=== PATIENT | male | born 1940 | race Caucasian/White ===

== ENCOUNTER 2021-02-03 20:13 | Emergency (ER) | payer OTHER ==
[~2021-02-03] VITALS: Ht 172.7 cm; Wt 77.1 kg
[2021-02-03 20:20] VITALS: BP 174/92
--- NOTE | 2021-02-03 20:20 | NUR ---
to bed via w/c with
[2021-02-03] MEDS ORDERED: LIDOCAINE MPF 1% 10 MG/ML VIAL INJ ONE (20:40)
[2021-02-03] MEDS ORDERED: BACITRACIN OINT 500 UNITS/GM PKT TP ONE (20:40)
--- NOTE | 2021-02-03 20:53 | NUR ---
Dr. Garcia examining patient.
[2021-02-03 22:04] VITALS: BP 174/92
--- NOTE | 2021-02-03 22:04 | NUR ---
Patient discharged with v/s stable. Written and verbal after care instructions given and explained. Patient verbalized understanding. Ambulatory with steady gait. ID band removed. All questions addressed prior to discharge. Advised to follow up with PMD.
--- NOTE | 2021-02-03 22:07 | NUR ---
WASHED AND BANDAGED LEFT HAND.
== END 2021-02-03 22:04 | disposition home or self-care (01) ==
LOC: MED 20:13
DX: S51.812A Laceration without foreign body of left forearm, initial encounter (principal); E11.9 Type 2 diabetes mellitus without complications; F03.90 Unspecified dementia, unspecified severity, without behavioral disturbance, psychotic disturbance, mood disturbance, and anxiety; I10 Essential (primary) hypertension; W19.XXXA Unspecified fall, initial encounter; Y93.89 Activity, other specified; Y92.89 Other specified places as the place of occurrence of the external cause; Y99.8 Other external cause status
CPT/HCPCS: 12004; 90471; 90715; 99283; J2001

== ENCOUNTER 2021-02-05 17:59 | Emergency (ER) | payer OTHER ==
[~2021-02-05] VITALS: Ht 170.2 cm; Wt 53.5 kg
[2021-02-05 18:08] VITALS: BP 146/73
--- NOTE | 2021-02-05 21:00 | NUR ---
IN CHAIR C WITH AT SIDE. AMBULATED TO BR WITH STEADY GAIT
[2021-02-05 21:37] VITALS: BP 146/73
--- NOTE | 2021-02-05 21:37 | NUR ---
Patient discharged with v/s stable. Written and verbal after care instructions given and explained. Patient verbalized understanding. Ambulatory with steady gait. All questions addressed prior to discharge. Advised to follow up with PMD.
== END 2021-02-05 21:37 | disposition home or self-care (01) ==
LOC: MED 17:59
DX: S41.112A Laceration without foreign body of left upper arm, initial encounter (principal); S09.90XA Unspecified injury of head, initial encounter; X58.XXXA Exposure to other specified factors, initial encounter; Y93.89 Activity, other specified; Y92.89 Other specified places as the place of occurrence of the external cause; Y99.8 Other external cause status
CPT/HCPCS: 70450; 72125; 73090; 73130; 99285

== ENCOUNTER 2021-06-12 12:06 | Inpatient (IN) | payer OTHER ==
[~2021-06-12] VITALS: Ht 167.6 cm; Wt 44.0 kg
[2021-06-12 12:06] VITALS: BP 114/56
--- NOTE | 2021-06-12 12:06 | NUR ---
JALEN ALS TO ER BED 6, DR KING AT BEDSIDE
--- NOTE | 2021-06-12 12:10 | NUR ---
81 Y/O MALE BIBA FROM HOME C/O ALOC. PER MEDICS, STATED THAT HE HAS BEEN ON THE FLOOR X3 DAYS NOT MOVING AND SHE WAS NOT ABLE TO GET HIM UP. PER MEDICS, BS READ "HIGH", SPO2 ON SCENE WAS 90%, WHEN PT WAS TRANSFERRED TO AMBULANCE, O2 DROPPED TO 70% AND WAS PLACED ON 15L NR. PT PRESENTS TO ED COVERED IN OWN FECES AND BUGS. PT HAS PINPOINT PUPILS AND RESPONSIVE TO PAINFUL STIMULI. PER MEDICS, REPORTED THAT HE USED TO SELF PRESCRIBE PAIN MEDICATION. PER , NORMAL IS [facility] 14 PMH:DEMENIA, DM, EMPHYSEMA NKDA MEDS: DENIES
[2021-06-12] MEDS ORDERED: NACL 0.9% 1,000 ML IV ONE ×3 (12:15→14:20)
[2021-06-12] MEDS ORDERED: NALOXONE 0.4 MG/ML VIAL IVP ONE ×2 (12:15→12:20)
[2021-06-12] MEDS ORDERED: NALOXONE PFS 2 MG/2 ML SYR ONE (12:21)
--- NOTE | 2021-06-12 12:30 | NUR ---
2L NS 0.9% BOLUS initiated
--- NOTE | 2021-06-12 12:39 | NUR ---
PT TAKEN TO CT VIA MIRELA ON TELE MONITOR. PT ACCOMPANIED WITH CRIME SCENE EXAMINER AND PRIMARY NURSE
--- NOTE | 2021-06-12 12:54 | NUR ---
PT BACK FROM CT AND TAKEN TO ER BED 1.
--- NOTE | 2021-06-12 13:30 | NUR ---
# 12 FR Day catheter with 10 ml utilizing sterile technique. Immediate return of 0 ml noted. Bedside drainage bag placed below level of bladder. Pt tolerated procedure well.
--- NOTE | 2021-06-12 13:30 | NUR ---
Note markell in EDM - 06/12/21 at 1715 by ANITA # 12 FR Day catheter with 10 ml utilizing sterile technique. Immediate return of 15 ml dark red blood noted. Bedside drainage bag placed below level of bladder. Urine sample collected and sent to lab. Pt tolerated procedure well.
[2021-06-12] MEDS ORDERED: PIPERACILLIN/TAZOBACTAM 3.375 GM in DEXTROSE 5% 50 ML IV ONE (14:25)
[2021-06-12] MEDS ORDERED: VANCOMYCIN 1,000 MG in DEXTROSE 5% 250 ML IV ONE (14:25)
--- NOTE | 2021-06-12 14:25 | NUR ---
Patient with dark red blood in Day catheter bag. Left upper extremity edema noted. Dr. Cox made aware.
[2021-06-12 14:28] LABS: HEMOGLOBIN 11.7 g/dL (12.0-18.0); MEAN CORPUSCULAR HGB CONC 31 g/dL (33-37); MONOCYTES # (AUTO) 0.4 K/uL (0.8-1.0)
[2021-06-12 14:34] LABS: HEMATOCRIT 37.5 % (36-52); LYMPHOCYTES # (AUTO) 0.3 K/uL (2.0-11.5); LYMPHOCYTES % (AUTO) 2.6 % (20.5-51.1); MEAN CORPUSCULAR HEMOGLOBIN 30 pg (27-31); MEAN CORPUSCULAR VOLUME 95.3 fL (80-94); MONOCYTES % (AUTO) 3.3 % (1.7-9.3); NEUTROPHILS # (AUTO) 12.3 K/uL (1.8-7.7); NEUTROPHILS % (AUTO) 94.1 % (42.2-75.2); PLATELET COUNT (AUTO) 217 K/uL (140-450); RED BLOOD CELL COUNT(AUTO) 3.94 MIL/uL (4.20-6.10); RED CELL DISTRIBUTION WIDTH 14.7 % (11.6-13.7); WHITE BLOOD COUNT (AUTO) 13.1 K/uL (4.8-10.8)
[2021-06-12 15:11] LABS: ALBUMIN 2.6 g/dL (3.4-5.0); ANION GAP 23.1 (8-16); ASPARTATE AMINOTRANSFERASE 40 U/L (15-37); CARBON DIOXIDE 18.8 mmol/L (21-32); CHLORIDE 115 mmol/L (98-107); POTASSIUM 4.9 mmol/L (3.5-5.1); SODIUM SERUM 152 mmol/L (136-145); TOTAL BILIRUBIN 0.4 mg/dL (0.0-1.0)
[2021-06-12 15:14] LABS: CREATININE 4.9 mg/dL (0.6-1.3); GLUCOSE 574 mg/dL (74-106); UREA NITROGEN, BLOOD 150 mg/dL (7-18)
--- NOTE | 2021-06-12 15:24 | NUR ---
RT at bedside for ABG
--- NOTE | 2021-06-12 15:35 | NUR ---
[facility] paramedics contacted and filed APS report #[id number]. Spoke with [place], APS entry level account representative who confirmed case and no additional filing required.
[2021-06-12] MEDS ORDERED: PIPERACILLIN/TAZOBACTAM 3.375 GM VIAL IV ONE (15:37)
--- NOTE | 2021-06-12 15:45 | NUR ---
PT CLEANED AND REPOSITIONED. RT AT BEDSIDE DOING EKG.
[2021-06-12] MEDS ORDERED: INSULIN REGULAR, HUMAN 100 UNIT in NACL 0.9% 100 ML IV ONE ×2 (16:05)
[2021-06-12] MEDS: BLOOD GLUCOSE MONITORING 1 DEV DEV FS SCH ×9 (16:40→23:40)
[2021-06-12] MEDS ORDERED: DEXTROSE 50% 50 ML SYR IVP PRN ×2 (16:40→17:25)
[2021-06-12] MEDS ORDERED: INSULIN REGULAR, HUMAN 100 UNIT in NACL 0.9% 100 ML IV SCH ×2 (16:40)
--- NOTE | 2021-06-12 16:41 | NUR ---
RT at bedside
--- NOTE | 2021-06-12 16:45 | NUR ---
Contacted Pharmacy for Insulin R drip. No answer.
[2021-06-12] MEDS ORDERED: VANCOMYCIN 1,000 MG VIAL ONE (16:46)
--- NOTE | 2021-06-12 16:53 | NUR ---
IV SITE TO RIGHT AC SWELLING, COOL TO TOUCH.
--- NOTE | 2021-06-12 17:15 | NUR ---
Bedside report given to ТАТЬЯНА Dick.
--- NOTE | 2021-06-12 17:15 | NUR ---
PT ARRIVED TO ICU 7 IN ER [facility]. PT IS AAOX0, EYES CLOSED, PERRL. UNABLE TO FOLLOW COMMANDS. PT IS ON ROOM AIR, SPO2 98%, RR 38. RESPIRATIONS EVEN AND UNLABORED. SR ON MONITOR, HR 87, BP 151/85. PULSES SYMMETRICAL, AMPLITUDE 2+. CAPILLARY REFILL <3S. BOWEL SOUNDS ACTIVE. PT WEARING DIAPER, S BM NOTED. F/C TO GRAVITY, DRAINING DARK RED URINE. 18G IV TO L AC PATENT INTACT. 20G IV TO R FA INFILTRATED. GENERALIZED WEAKNESS BUE BLE. SKIN NOT INTACT. DTI TO L HIP. PERINEAL REDNESS. SKIN TEARS TO L LATERAL UPPER ABD. SCABS TO LLE. ON STANDARD PRECAUTIONS. SAFETY PRECAUTIONS MET. INITIAL ASSESSMENT COMPLETE. WILL CONTINUE TO CLOSELY MONITOR.
[2021-06-12] MEDS ORDERED: INSULIN LISPRO SLIDING SCALE 100 UNITS/ML VIAL SUBQ PRN (17:25)
[2021-06-12] MEDS ORDERED: VANCOMYCIN PER PHARMACY MC PRN (17:25)
[2021-06-12 18:00] VITALS: BP 138/64
[2021-06-12] MEDS ORDERED: PIPERACILLIN/TAZOBACTAM 3.375 GM in DEXTROSE 5% 50 ML IV SCH (18:00)
[2021-06-12] MEDS: DEXT 5% / NACL 0.45% 1,000 ML IV SCH (18:00)
[2021-06-12] MEDS: NACL 0.9% 1,000 ML IV SCH (18:00)
--- NOTE | 2021-06-12 18:15 | NUR ---
D/C RFA 20G IV. INSERTED 20G IV TO KULWANT, PATENT, INTACT.
--- NOTE | 2021-06-12 19:00 | NUR ---
ASSUMED CARE OF PT.INITIAL ASSESSMENT COMPLETED.SR NOTED ON MONITOR.PT AWAKE,LETHARGIC.ON ROOM AIR.NO SOB NOTED.W/PERIPHERAL IV TO LT AC G18 INTACT INFUSING INSULIN DRIP AT 0.1UNIT/KG/HR AT 4.3ML/HR.DRY WT 43.5KG.PERIPHERAL IV TO RT UPPER ARM INTACT G20 INFUSING ORDERED IVF PER PROTOCOL.MAINTAINED ON NPO.W/SOTO CATHETER TO BSD DRAINING SMALL AMT OF DARK RED/BLOODY URINE.W/BLISTER TO LT HIP , SKIN TEARS TO LT SIDE RIB AREA, LUE W/BRUISING AND NON PITTING EDEMA.EXTREMITIES RIGID.FLACC 0.CALL LIGHT WITHIN REACH.BED IN LOW POSITION.WILL CONTINUE TO CLOSELY MONITOR PT
--- NOTE | 2021-06-12 19:27 | NUR ---
ONGOING KIDNEY ULTRASOUND AT BEDSIDE.
[2021-06-12 20:00] VITALS: BP 158/75
--- NOTE | 2021-06-12 20:00 | NUR ---
ORAL CARE DONE.PTS TEMP 95.1/RECTAL.BRYAN VAZ ALREADY IN PLACE.
[2021-06-12 20:43] LABS: CARBON DIOXIDE 19.4 mmol/L (21-32); CHLORIDE 119 mmol/L (98-107); POTASSIUM 3.4 mmol/L (3.5-5.1); SODIUM SERUM 153 mmol/L (136-145)
[2021-06-12 20:46] LABS: GLUCOSE 499 mg/dL (74-106)
[2021-06-12 20:47] LABS: CREATININE 4.6 mg/dL (0.6-1.3); UREA NITROGEN, BLOOD 146 mg/dL (7-18)
[2021-06-12 20:48] LABS: MAGNESIUM 2.6 mg/dL (1.8-2.4); PHOSPHORUS 6.5 mg/dL (2.5-4.9)
--- NOTE | 2021-06-12 20:50 | NUR ---
PHONE CALL TO PHARMACIST; SPOKE WITH JUNIOR, NOTIFIED PT HAS ZOSYN 2.25GM SCHEDULED FOR 2100; PT RECEIVED ZOSYN 3.375GM AT 1640 IN ER; SHE SAID TO ADMINISTER THE MEDICATION CLOSE TO 2200
[2021-06-12 20:58] LABS: FREE T4 (FREE THYROXINE) 0.9 ng/dL (0.76-1.46); THYROID STIMULATING HORMONE 1.19 uIU/mL (0.34-3.74)
[2021-06-12] MEDS ORDERED: levETIRAcetam 100 MG/ML VIAL IV ONE (20:58)
[2021-06-12 21:00] VITALS: BP 151/68
[2021-06-12] MEDS ORDERED: PIPERACILLIN/TAZOBACTAM 2.25 GM VIAL IV ONE (21:14)
[2021-06-12] MEDS: levETIRAcetam 1,000 MG in NACL 0.9% 100 ML IV SCH (21:19)
[2021-06-12] MEDS: PIPERACILLIN/TAZOBACTAM 2.25 GM in DEXTROSE 5% 50 ML IV SCH (21:58)
[2021-06-12 22:00] VITALS: BP 113/48
--- NOTE | 2021-06-12 22:50 | NUR ---
PT TO CT FOR CT OF ABDOMEN AND PELVIS WITHOUT CONTRAST WITHOUT INCIDENT; CONNECTED BACK TO BEDSIDE MONITOR.NO SOB NOTED ON ROOM AIR.PERIPHERAL IV'S INTACT, INFUSING ORDERED IVF AND INSULIN DRIP.
[2021-06-12 23:00] VITALS: BP 101/51
[2021-06-13] VITALS (20 sets, daily range): BP systolic 100–149; BP diastolic 42–84
--- NOTE | 2021-06-13 | NUR ---
PT ASLEEP;EASILY AROUSABLE.TEMP 96.2, BRYAN HUGGER STILL IN PLACE.REPOSITIONED FOR COMFORT
[2021-06-13 00:04] LABS: APPEARANCE,URINE CLOUDY (CLEAR); BILIRUBIN,URINE 2+ (NEGATIVE); BLOOD, URINE 3+ (NEGATIVE); LEUKOCYTE ESTERASE ,URINE 1+ (NEGATIVE); NITRITE, URINE POSITIVE (NEGATIVE); PH,URINE 6.5 (5.0-9.0); UGLUCOSE 3+ (NEGATIVE)
[2021-06-13 00:06] LABS: COLOR,URINE AMBER (YELLOW)
[2021-06-13 00:11] LABS: RBC,URINE TOO NUMEROUS TO COUN /HPF (0-5); WBC,URINE TOO MANY TO COUNT /HPF (0-5)
[2021-06-13 00:18] LABS: BARBITURATE, URINE NEGATIVE ng/ml (NEG <=200); BENZODIAZEPINE, URINE NEGATIVE ng/mL (NEG <=200); CANNABINOID, URINE NEGATIVE ng/mL (NEG <=50); COCAINE, URINE NEGATIVE ng/mL (NEG <=300); OPIATE, URINE NEGATIVE ng/mL (NEG <=2000); PHENCYCLIDINE SCREEN,URINE NEGATIVE ng/mL (NEG <=25)
[2021-06-13] MEDS: DEXT 5% / NACL 0.45% 1,000 ML IV SCH ×4 (00:20→14:15)
[2021-06-13] MEDS: BLOOD GLUCOSE MONITORING 1 DEV DEV FS SCH ×14 (00:40→21:21)
[2021-06-13] MEDS: NACL 0.9% 1,000 ML IV SCH ×6 (00:40→22:40)
[2021-06-13 01:08] LABS: ANION GAP 17.6 (8-16); CHLORIDE 123 mmol/L (98-107); GLUCOSE 210 mg/dL (74-106); POTASSIUM 3.6 mmol/L (3.5-5.1)
[2021-06-13 01:19] LABS: MAGNESIUM 2.2 mg/dL (1.8-2.4); PHOSPHORUS 4.2 mg/dL (2.5-4.9)
[2021-06-13 01:22] LABS: CREATININE 4.4 mg/dL (0.6-1.3); SODIUM SERUM 159 mmol/L (136-145); UREA NITROGEN, BLOOD 145 mg/dL (7-18)
--- NOTE | 2021-06-13 02:40 | NUR ---
BS 131; STILL ON INSULIN DRIP AT 0.05UNITS/KG/HR.WILL CONTINUE TO CLOSELY MONITOR PT.
[2021-06-13] MEDS ORDERED: PIPERACILLIN/TAZOBACTAM 2.25 GM VIAL IV ONE (04:36)
[2021-06-13 04:48] LABS: ANION GAP 15.9 (8-16); CARBON DIOXIDE 21.4 mmol/L (21-32); CHLORIDE 124 mmol/L (98-107); GLUCOSE 121 mg/dL (74-106); POTASSIUM 4.3 mmol/L (3.5-5.1)
[2021-06-13 04:58] LABS: CREATININE 4.2 mg/dL (0.6-1.3); SODIUM SERUM 157 mmol/L (136-145); UREA NITROGEN, BLOOD 138 mg/dL (7-18)
[2021-06-13 05:03] LABS: MAGNESIUM 2.2 mg/dL (1.8-2.4); PHOSPHORUS 3.9 mg/dL (2.5-4.9)
[2021-06-13] MEDS: PIPERACILLIN/TAZOBACTAM 2.25 GM in DEXTROSE 5% 50 ML IV SCH ×3 (05:04→21:11)
--- NOTE | 2021-06-13 05:06 | NUR ---
MORNING CARE DONE.ORAL CARE RENDERED.PT REPOSITIONED.FLACC 0
--- NOTE | 2021-06-13 07:20 | NUR ---
RECEIVED REPORT FROM DARLENE VAZ PT SLEEPING IN BED HOB UP 3O DEGREE,INSULIN DRIP IN PROGRESS WITH D5 0.45 INFUSING AT 200ML, IV AT BOTH ARM INFUSING WELL SOTO CATH DRAIN DARK HEMATURIA. LT ARM SLIGHTLY EDEMATES , GENERAL SKIN HAS DIS COLOR SCALP AND BLISTER ALL OVER.
--- NOTE | 2021-06-13 07:50 | NUR ---
BLOOD GLUCOSE 51 . D50 50 ML GIVEN ORDERED.
[2021-06-13 08:26] LABS: ANION GAP 12.8 (8-16); CHLORIDE 125 mmol/L (98-107); GLUCOSE 56 mg/dL (74-106); POTASSIUM 3.8 mmol/L (3.5-5.1)
[2021-06-13 08:35] LABS: CREATININE 4.1 mg/dL (0.6-1.3); SODIUM SERUM 157 mmol/L (136-145); UREA NITROGEN, BLOOD 137 mg/dL (7-18)
--- NOTE | 2021-06-13 08:50 | NUR ---
BS 121 PT ON INSULIN DRIP.
[2021-06-13] MEDS: levETIRAcetam 1,000 MG in NACL 0.9% 100 ML IV SCH ×2 (09:00→21:12)
[2021-06-13 09:18] LABS: MAGNESIUM 2.1 mg/dL (1.8-2.4); PHOSPHORUS 3.8 mg/dL (2.5-4.9)
--- NOTE | 2021-06-13 09:50 | NUR ---
BS IS 106 STILL RMAIN INSULIN DRIP ,, IRRIGATE SOTO WITH NS 500 ML THE IRREGATION FLUID LOOK LESS HEMATURIA.
[2021-06-13] MEDS ORDERED: INSULIN LANTUS 100 UNITS/ML 10 ML VIAL SUBQ SCH (09:55)
--- NOTE | 2021-06-13 10:00 | NUR ---
SEEN BY ART BED SIDE ORDER TO STOP INSULIN DRIP, STARTED SLIDING SCALEAND SWALLOW EVALUATION.
[2021-06-13] MEDS: VANCOMYCIN 1,000 MG in DEXTROSE 5% 250 ML IV SCH ×2 (11:04→11:17)
[2021-06-13] MEDS ORDERED: DEXTROSE 50% 50 ML SYR IVP PRN (11:15)
[2021-06-13 11:25] LABS: BASOPHILS % (AUTO) 0.4 % (0.0-2.0); EOSINOPHILS % (AUTO) 0.1 % (0.0-4.0); HEMATOCRIT 31.8 % (36-52); HEMOGLOBIN 10.3 g/dL (12.0-18.0); LYMPHOCYTES # (AUTO) 0.6 K/uL (2.0-11.5); MEAN CORPUSCULAR HEMOGLOBIN 30 pg (27-31); MEAN CORPUSCULAR HGB CONC 32 g/dL (33-37); MEAN CORPUSCULAR VOLUME 93.9 fL (80-94); MONOCYTES # (AUTO) 0.4 K/uL (0.8-1.0); MONOCYTES % (AUTO) 4.1 % (1.7-9.3); NEUTROPHILS # (AUTO) 8.8 K/uL (1.8-7.7); PLATELET COUNT (AUTO) 184 K/uL (140-450); RED BLOOD CELL COUNT(AUTO) 3.39 MIL/uL (4.20-6.10); RED CELL DISTRIBUTION WIDTH 14.7 % (11.6-13.7); WHITE BLOOD COUNT (AUTO) 9.8 K/uL (4.8-10.8)
--- NOTE | 2021-06-13 11:30 | NUR ---
BL. GLUCOSE 146 NO INSULIN COVER DEEDED
[2021-06-13 12:00] LABS: LYMPHOCYTES % (AUTO) 5.9 % (20.5-51.1); NEUTROPHILS % (AUTO) 89.5 % (42.2-75.2)
--- NOTE | 2021-06-13 12:47 | NUR ---
06/13/2021 RD INITIAL ASSESSMENT COMPLETED PLEASE REFER TO NUTRITION ASSESSMENT UNDER CARE ACTIVITY FOR ESTIMATED NUTRITIONAL NEEDS. 1.RECOMMEND PATIENT TO SEE SPEECH THERAPY FOR SWALLOW EVAL. 2.WHEN/IF MEDICALLY APPROPRIATE AND IF PT PASSES SPEECH SWALLOW EVAL SUCCESSFULLY, RECOMMEND RENAL DIET AND SUPPLEMENT WITH DILIA AND GLUCERNA BID FOR LOW BMI. 3.WHEN/IF MEDICALLY APPROPRIATE AND PT UNABLE TO HAVE FOOD BY MOUTH AND IF PT NEEDS A TF DIET, RECOMMEND GLUCERNA 1.2 WITH GOAL RATE OF 60ML/HR. -START GLUCERNA 1.2 @ 10ML/HR AND INCREASE BY 10ML/HR Q4HR UNTIL GOAL RATE IS REACHED. -FWF OF 200ML Q6HR. RD TO FOLLOW-UP IN 2-3 DAYS PATIENT IS HIGH RISK. VIGNESH JENNINGS RD
--- NOTE | 2021-06-13 13:20 | NUR ---
IRREGATE SOTO WITH 500 ML ENOC.
--- NOTE | 2021-06-13 14:00 | NUR ---
SEEN BY DR. TOWNSEND AT BED SIDE, NO ORDER RECELVED,
--- NOTE | 2021-06-13 17:00 | NUR ---
BLOOD GLUCOSE 177 INSULIN COVER ODERED
[2021-06-13 17:15] LABS: BASOPHILS # (AUTO) 0.1 K/uL (0.00-0.22); BASOPHILS % (AUTO) 0.7 % (0.0-2.0); HEMATOCRIT 32.8 % (36-52); HEMOGLOBIN 10.6 g/dL (12.0-18.0); LYMPHOCYTES # (AUTO) 0.5 K/uL (2.0-11.5); LYMPHOCYTES % (AUTO) 5.1 % (20.5-51.1); MEAN CORPUSCULAR HEMOGLOBIN 30 pg (27-31); MEAN CORPUSCULAR HGB CONC 32 g/dL (33-37); MEAN CORPUSCULAR VOLUME 93.8 fL (80-94); MONOCYTES # (AUTO) 0.3 K/uL (0.8-1.0); MONOCYTES % (AUTO) 3.4 % (1.7-9.3); NEUTROPHILS # (AUTO) 8.3 K/uL (1.8-7.7); NEUTROPHILS % (AUTO) 90.8 % (42.2-75.2); PLATELET COUNT (AUTO) 136 K/uL (140-450); RED CELL DISTRIBUTION WIDTH 14.5 % (11.6-13.7); WHITE BLOOD COUNT (AUTO) 9.1 K/uL (4.8-10.8)
[2021-06-13 17:38] LABS: ALBUMIN 1.9 g/dL (3.4-5.0); ANION GAP 13.8 (8-16); ASPARTATE AMINOTRANSFERASE 44 U/L (15-37); CARBON DIOXIDE 21.1 mmol/L (21-32); CHLORIDE 122 mmol/L (98-107); CREATININE 3.8 mg/dL (0.6-1.3); GLUCOSE 210 mg/dL (74-106); MAGNESIUM 2.1 mg/dL (1.8-2.4); POTASSIUM 3.9 mmol/L (3.5-5.1); SODIUM SERUM 153 mmol/L (136-145); TOTAL BILIRUBIN 0.4 mg/dL (0.0-1.0)
[2021-06-13 17:42] LABS: UREA NITROGEN, BLOOD 129 mg/dL (7-18)
--- NOTE | 2021-06-13 18:40 | NUR ---
SEEN BY DR LUCIA AT BEDSIDE HE EXAM THE PATIENT.
--- NOTE | 2021-06-13 19:30 | NUR ---
PT.IS RESTING,V/S WITHIN NORMAL LIMIT REPORT GIVE TO ALIREZA VAZ.
--- NOTE | 2021-06-13 19:31 | NUR ---
ASSUMED CARE OF PT.INITIAL ASSESSMENT COMPLETED.PT ASLEEP;EASILY AROUSABLE.STILL DOES NOT FOLLOW COMMANDS.SR NOTED ON MONITOR.NO SOB NOTED ON ROOM AIR.PERIPHERAL IV TO LT AC G18, SALINE LOCK;G20 TO KULWANT INTACT, INFUSING ORDERED IVF.PT MAINTAINED ON NPO.W/SOTO CATHETER TO BSD DRAINING ADEQUATE AMT OF PINK TINGED YELLOW URINE.BLISTER TO LT SHOULDER INTACT, LT HIP DRESSING INTACT.ALL EXTREMITIES STILL RIGID WITH GENERALIZED WEAKNESS.FLACC 0.FALL PRECAUTION IN PLACE.CALL LIGHT WITHIN REACH.WILL CONTINUE TO CLOSELY MONITOR PT.
--- NOTE | 2021-06-13 21:00 | NUR ---
ALL DUE MEDS GIVEN.PT REPOSITIONED.ORAL CARE DONE
[2021-06-13] MEDS: INSULIN LISPRO SLIDING SCALE 100 UNITS/ML VIAL SUBQ PRN (21:20)
[2021-06-14] VITALS (11 sets, daily range): BP systolic 109–144; BP diastolic 45–67
--- NOTE | 2021-06-14 | NUR ---
SINUS ARRHYTHMIA NOTED ON MONITOR.PT ASLEEP,EASILY AROUSABLE.BM NOTED SMALL AMT.CLEANED.REPOSITIONED.
--- NOTE | 2021-06-14 00:30 | NUR ---
BLADDER IRRIGATION DONE WITH 400ML SALINE ORDERED.URINE/SOTO CATHETER STILL WITH PINK TINGED.
--- NOTE | 2021-06-14 02:28 | NUR ---
REPOSITIONED.FLACC 0
[2021-06-14 02:59] LABS: APPEARANCE,URINE SL CLOUDY (CLEAR); BILIRUBIN,URINE NEGATIVE (NEGATIVE); BLOOD, URINE 3+ (NEGATIVE); COLOR,URINE YELLOW (YELLOW); LEUKOCYTE ESTERASE ,URINE 3+ (NEGATIVE); NITRITE, URINE POSITIVE (NEGATIVE); UGLUCOSE NEGATIVE (NEGATIVE)
[2021-06-14 03:10] LABS: RBC,URINE 20-50 /HPF (0-5); WBC,URINE 16-25 (MOD) /HPF (0-5)
--- NOTE | 2021-06-14 03:16 | NUR ---
URINE SPECIMEN SENT TO LAB ORDERED
[2021-06-14] MEDS: DEXT 5% / NACL 0.45% 1,000 ML IV SCH (03:35)
[2021-06-14] MEDS: NACL 0.9% 1,000 ML IV SCH ×2 (03:40→07:30)
[2021-06-14] MEDS: PIPERACILLIN/TAZOBACTAM 2.25 GM in DEXTROSE 5% 50 ML IV SCH ×3 (05:15→20:23)
--- NOTE | 2021-06-14 05:15 | NUR ---
MORNING CARE AND ORAL CARE DONE.REPOSITIONED.SMALL AMT OF SOFT TO LOOSE BOWEL NOTED, REPOSITIONED
[2021-06-14 05:52] LABS: EOSINOPHILS % (AUTO) 0.1 % (0.0-4.0); HEMATOCRIT 29.1 % (36-52); HEMOGLOBIN 9.5 g/dL (12.0-18.0); LYMPHOCYTES # (AUTO) 0.4 K/uL (2.0-11.5); LYMPHOCYTES % (AUTO) 3.8 % (20.5-51.1); MEAN CORPUSCULAR HEMOGLOBIN 30 pg (27-31); MEAN CORPUSCULAR HGB CONC 33 g/dL (33-37); MEAN CORPUSCULAR VOLUME 92.6 fL (80-94); MONOCYTES # (AUTO) 0.4 K/uL (0.8-1.0); MONOCYTES % (AUTO) 3.3 % (1.7-9.3); NEUTROPHILS # (AUTO) 10.7 K/uL (1.8-7.7); NEUTROPHILS % (AUTO) 92.8 % (42.2-75.2); PLATELET COUNT (AUTO) 124 K/uL (140-450); RED BLOOD CELL COUNT(AUTO) 3.15 MIL/uL (4.20-6.10); RED CELL DISTRIBUTION WIDTH 14.4 % (11.6-13.7); WHITE BLOOD COUNT (AUTO) 11.5 K/uL (4.8-10.8)
[2021-06-14 06:13] LABS: ANION GAP 13.7 (8-16); CARBON DIOXIDE 20.8 mmol/L (21-32); CHLORIDE 123 mmol/L (98-107); CREATININE 3.4 mg/dL (0.6-1.3); GLUCOSE 177 mg/dL (74-106); POTASSIUM 3.5 mmol/L (3.5-5.1); SODIUM SERUM 154 mmol/L (136-145)
[2021-06-14 06:20] LABS: MAGNESIUM 1.8 mg/dL (1.8-2.4); PHOSPHORUS 3.1 mg/dL (2.5-4.9)
[2021-06-14 06:30] LABS: UREA NITROGEN, BLOOD 115 mg/dL (7-18)
--- NOTE | 2021-06-14 07:30 | NUR ---
RECEIVED BEDSIDE REPORT FROM HOUSE REGISTRY RN NURSE, PT RESTING, NO DISTRESS NOTED, APHASIC, UNABLE TO LET NEEDS KNOWN, IV TO RIGHT UPPER ARM 20G PATENT INTACT, INFUSING D51/2 NS @ 75ML/HR, INFUSING WELL, IV TO LEFT AC 20G PATENT INTACT, SL. SOTO CATH IN PLACE DRAINING TO GRAVITY. NOTED NO BLOOD CLOT, CLEAR. PT AVERBAL, UNABLE TO FOLLOW COMMANDS. AWAITING FOR SWALLOW EVAL. INITIAL ASSESSMENT DONE, ALL SAFETY PRECAUTION MET, CALL LIGHT WITHIN REACH, WILL CONTINUE TO MONITOR.
[2021-06-14] MEDS: BLOOD GLUCOSE MONITORING 1 DEV DEV FS SCH ×4 (08:04→20:25)
[2021-06-14] MEDS: INSULIN LISPRO SLIDING SCALE 100 UNITS/ML VIAL SUBQ PRN ×4 (08:04→20:27)
[2021-06-14 08:07] LABS: T4 (THYROXINE) 5.2 ug/dL (4.5-12.0)
[2021-06-14] MEDS: levETIRAcetam 1,000 MG in NACL 0.9% 100 ML IV SCH (09:14)
--- NOTE | 2021-06-14 11:40 | NUR ---
DR RAMAN AT BEDSIDE EVALUATING PT.
--- NOTE | 2021-06-14 12:56 | NUR ---
DR GOMES AT BEDSIDE PER TO ORDER HEPARIN 500UNITS SUBQ TID. WILL PUT IN AND CONTINUE WITH ORDERS.
--- NOTE | 2021-06-14 13:05 | NUR ---
RECEIVED PHONE CALL FROM PHARMACY REGARDING PT IS ON KEPPRA 1000MG, BECAUSE OF PT RENAL STATUS, PHARMACY IS RECOMMENDING 500MG INSTEAD. NOTIFIED DR RAMAN, PER DR TERAN TO MAKE CHANGES. WILL CONTINUE WITH ORDERS.
--- NOTE | 2021-06-14 13:10 | NUR ---
EEG PROCEDURE DONE
--- NOTE | 2021-06-14 13:45 | NUR ---
WOUND CARE EVALUATION NOTE: SKIN ASSESSMENT DONE ON THIS 81-YEAR-OLD PT. ADMITTED WITH AMS AND PAST MEDICAL HX: DIABETIC MELLITUS, HYPERTENSION AND DEMENTIA. PT. ADMITTED WITH MULTIPLE PRESSURE INJURIES AND LOW BAILEY SCALE AT HIGH RISK. PER EMS REPORT, FOUND HIM ON THE GROUND AND HE WAS APPARENTLY ON THE FLOOR FOR 3 DAYS. PT. WITH DEHYDRATION, MALNUTRITION, SKIN TO BONE, DRY LIPS AND DRY ORAL MUCOUS. SKIN GENERALIZES DRY WRINKLING WITH POOR SKIN TURGOR, SKIN THIN AND EASILY TO TORN. +1 EDEMA TO UPPER EXTREMITIES WITH MULTIPLE ECCHYMOSIS. BLE NO HAIR GROW, MULTIPLE DRY PEELING SCABS AND ABRASIONS. BMI 15.2, ALBUMIN 1.9. POC DISCUSSED WITH PRIMARY RN. -RIGHT EAR BLANCHABLE REDNESS, SKIN INTACT, FOAM DRESSING APPLY AND OFFLOAD. -LEFT LATERAL SHOULDER DTI WITH INTACT BLOODY BLISTER 4X2CM, LUIS-WOUND SKIN INTACT -LEFT HIP PRESSURE INJURY STAGE 3 OPEN BLISTER 4X3X0.2CM WOUND BED 100% PINK AND MOIST NO ODOR, LUIS WOUND SKIN PALE, SURROUNDING SKIN WITH ABRASION -LEFT RIB/CHEST SKIN TEAR MULTIPLE PINPOINTS SKIN TEARS WITH LARGEST 0.5X0.5X0.1CM, WOUND BED RED, MOIST, NO ODOR, LUIS WOUND SKIN DRY AND PALE. -LEFT ARM MULTIPLE ECCHYMOSIS, SKIN MOIST AND INTACT -BILATERAL HEELS NON-BLANCHABLE REDNESS LEFT HEEL 1X2CM RIGHT HEEL 1X1CM SKIN INTACT. RECOMMENDATIONS: -FOAM DRESSING TO RIGHT EAR, BILATERAL ELBOWS, THORACIC AND LUMBAR SPINE/SACRALCOCCYX, BILATERAL LATERAL AND MEDIAL KNEES, BILATERAL HEELS Q3DAYS AND PRN IF SOILING. -APPLY HYDRAGUARD TO TRUNK OF BODY, UPPER /LOWER EXTREMITIES AND PERINEUM BID AND BRINA -VESATEL DRESSING TO LEFT CHEST SKIN TEAR, LEFT SHOULDER BLISTER Q5 DAYS AND PRN IS SOILING -CLEANSE LEFT HIP WOUND WITH NS, PAT DRY APPLY HYDROGEL TO WOUND BED AND COVER WITH DRY DRESSING QD AND PRN IF SOILING. -POSITIONING: TURN AND REPOSITION PATIENT Q 2H OR SOONER USE PILLOWS TO KEEP BONY PROMINENCES FROM DIRECT CONTACT WITH SURFACES USE REPOSITIONING WEDGES TO PROVIDE 30-DEGREE ANGLE FOR SIDE LYING POSITIONS OFFLOADING OR FOAM DRESSING TO ALL TUBING TO PREVENT MEDICAL DEVICES RELATED PRESSURE INJURY -RE-EVALUATING AND MANAGING INCONTINENCE MONITOR SKIN CONDITION DURING POSITION CHANGE DO NOT MASSAGE REDNESS, BONY PROMINENCES FREQUENT LUIS-CARE AND PROVIDE BARRIER CREAMS PRN IF SOILING MOISTURE CONTROL BY OFFER BED LAWSON/URINAL /ABSORBENT PAD TO WICK AND HOLD MOISTURE KEEP SKIN DRY AND PROTECT FROM FRICTION -MANAGE FRICTION/SHEAR/MOBILITY KEEP HOB AT THE LOWEST LEVEL OF ELEVATION NO MORE THAN 30 DEGREE UNLESS OTHERWISE CONTRAINDICATED USE LIFT SHEET OR TRANSFER DEVICE TO MOVE PATIENT AND PREVENT LATERAL SHEER. PROTECT HEELS, ELBOWS BONY PROMINENCES WITH SKIN BERRIES OR FOAM DRESSING IF EXPOSED TO FRICTION OFFLOAD BILATERAL HEELS BY PLACING PILLOWS UNDER CALVES AT ALL TIMES, UNLESS OTHERWISE CONTRAINDICATED -PRESSURE REDISTRIBUTION SURFACE THERAPY BLAINE ISOFLEX MATTRESS -NUTRITION: PLEASE FOLLOW RD RECOMMENDATIONS AND OFFER NUTRITION SUPPLEMENTS IF ORDERED. PLEASE CONTACT WOUND CARE NURSE FOR ANY QUESTION AND CHANGE OF WOUND CONDITION.
--- NOTE | 2021-06-14 14:07 | NUR ---
DC PLANNIN YRS OLD MALE PATIENT WAS ADMITTED FROM HOME WITH A DX OF DKA. PATIENT HAS A HX OF DM, HTN AND DEMENTIA. CXR SHOWED ATELECTASIS. HEAD CT NO ACUTE INTRACRANIAL HEMORRHAGE, CT ABD/PELVIS SHOWED MODERATE COLONIC DIVERTICULOSIS, EMPHYSEMATOUS CYSTITIS. RAPID COVID TEST NEGATIVE. ADMINISTERED IVF, IV ABX VANCOMYCIN AND ZOSYN AND IV KEPPRA. CONSULTED WITH NEPHRO, PULMO, NEUROLOGIST AND UROLOGIST FOR HEMATURIA. DC PLAN PER PT RESPOND TO THE TREATMENT. CM TO FOLLOW Addendum: 06/15/21 at 1414 by Laury Khalil RN DC PLANNING: PATIENT NON RESPONSIVE NGT FOR MEDS AND FEEDING. SHAY YODER SPOKE WITH PT'S CYNTHIA ARRANGED MEETING WITH TOMORROW AT 11:00 AM. PER CYNTHIA SHE CAN NOT TAKE CARE OF HIM ANY MORE AND REQUESTED TO SEND HIM THE SNF THAT MD'S RECOMMENDATION. FAXED TO [facility] AND [facility]. DC PLAN TO SEND HIM TO SNF WHEN STABLE CM TO FOLLOW Addendum: 06/16/21 at 1258 by Laury Khalil RN DC PLANNING: DR RAMAN, CM AND OFFICE SERVICES ASSOCIATE MET WITH PATIENT'S CYNTHIA, DANI SIFUENTES. DISCUSSED THE ISSUES AND CONCERN , CYNTHIA STATED THAT PATIENT DIDN'T WANT TO BE ANY LIFE SUPPORT WANTED TO BE DNR. SHE WON'T BE ABLE TO TAKE CARE OF HIM AT HOME AND REQUESTING TO BE TRANSFERRED TO SNF WITH HOSPICE. DR RAMAN EXPLAINED AND ANSWERED ALL HER QUESTION. SHE SIGNED THE POLST FORM FOR DNR ,INFORMED PT'S PRIMARY NURSE BRITTA AND PLACE IT ON THE CHART. SHE REQUESTED TO BE ON HOSPICE. [facility] WILL CONTACT HER. FAXED ALL PAPERWORK TO [facility]. CM TO FOLLOW Addendum: 06/17/21 at 1538 by Laury Khalil RN DC PLANNING: PATIENT IS ACCEPTED AT [facility] GOING TO ROOM 1C. ARRANGED TRANSPORT WITH [employer] STRAP CUTTING MACHINE OPERATOR TIME BETWEEN 5-6PM NOTIFIED PERRY VAZ.
--- NOTE | 2021-06-14 14:34 | NUR ---
DR CLOUD AT BEDSIDE EVALUATING PT, PER DR TO DECREASE FLUIDS TO 60ML/HR, WILL CONTINUE WITH ORDERS.
[2021-06-14 14:42] LABS: CREATININE,URINE RANDOM 14 mg/dL (30-125); URINE SODIUM, RANDOM 116 mmol/l (40-220)
--- NOTE | 2021-06-14 14:45 | NUR ---
DC PLANNING SW ATTEMPTED TO CONTACT APS/CLINICAL INFORMATICS DIRECTOR TATO BUSTOS AT TO DISCUSS PATIENT AND HIS RECENT APS/REPORT MADE ON 06/13/2021 . AFTER SEVERAL CALLS AND NO RESPONSES THESE DANCE PROFESSOR CONTACTED APS/RECONCILIATION ANALYST SYBIL VAZQUEZ AT TO DISCUSS PATIENT'S CASE AND FOLLOW UP WITH APS REPORT MR. VAZQUEZ DID NOT RESPONDED AND THESE DANCE PROFESSOR LEFT HIM A MSG WITH DIRECT CONTACT INFORMATION AND A REQUEST FOR A CALL BACK SOON POSSIBLE. SW WILL FOLLOW UP NEEDED. Addendum: 06/15/21 at 1331 by Joelle LOFTON DC PLANNING PATIENT IS AN 81 YEAR OLD MALE ADMITTED ON 06/12/[address] [facility]/ED DUE TO FOUND UNCONSCIOUS AT HOME ON THE FLOOR FOR ABOUT 3 DAYS. BROUGHT BY [facility]. PATIENT HAS HX OF DIABETES AND DEMENTIA MEDICAL HX. AN APS REPORT HAS BEEN FILE WITH [facility] TATO BUSTOS DUE TO PATIENT'S FOUND WITH BRUISES, MALNOURISH, WITH NO HYGIENE AND UNSAFE ENVIRONMENT. SW ATTEMPTED TO MEET WITH PATIENT AT BEDSIDE HOWEVER PATIENT IS UNABLE TO ANSWER QUESTIONS OR PROVIDE HIS OWN INFORMATION THEREFORE; SW CONTACTED PATIENT'S CYNTHIA LOUISE DUNGRAMO AT TO DISCUSS AND GATHER PATIENT'S COLLATERAL INFORMATION. ACCORDING TO PATIENT'S HE HAS BEEN DIAGNOSED WITH DEMENTIA SINCE 2018 AND HAS DECLINED ON HIS ABILITY TO CARE FOR HIMSELF, PER IS ABLE STILL TO RECOGNIZED HER BUT IS VERBALLY AGGRESSIVE WITH HER AND REFUSES TO TAKE MEDICATION, AND CARE FOR HIMSELF. PATIENT HAS FAMILY AND A DAUGHTER FROM A PREVIOUS MARRIAGE HOWEVER THEY HAVE NOT COMMUNICATED FOR ABOUT 7-10 YEARS AND SHE IS UNABLE TO REACH OUT TO THEM SINCE SHE DO NOT KNOW OF THEIR WHERE ABOUTS. PER PATIENT ALSO HAS SISTERS BUT HAVE FAMILY DISCORD AND HAVE NOT SPEAK FOR SOME YEARS NOW. STATED USAMA SHE IS THE ONLY FAMILY SUPPORT PATIENT HAS AT THIS TIME AND SHE IS BEEN CARING FOR PATIENT FOR SOME TIME BUT NOW SHE IS UNABLE TO CARE FOR HIS NEEDS SINCE HIS LEVEL OF CARE HAS INCREASED. PER PATIENT'S HIS HEALTH HAS DECLINED GREATLY AND SHE IS UNABLE TO CONTINUE TO CARE FOR PATIENT AT HOME. PER PATIENT'S SHE WANTS PATIENT TO GO TO A LOCAL SNF. PER PATIENT'S PATIENT'S LAST VISIT WITH PCP DR. MAXWELL WAS ABOUT A MONTH AGO AND HAS NOT BEEN REALLY HELPFUL TO PATIENT AND HIS , MEDICAL NEEDS. PER PATIENT WAS ABLE TO WALK ABOUT 4-5 DAYS AGO HOWEVER; HE IS NOW UNABLE TO MOVE ON HIS OWN. PATIENT IS UNWILLING TO SHOWER OR HAVE SOMEONE WASH HIM. PER PATIENT'S HE HAS NO DME AT HOME AND HIS MEDICATIONS ARE HATCHERY WORKER BY HER AT [facility]. SW DISCUSSED WITH PATIENT'S ABOUT APS REPORT BEEN MADE AND EXPLAINED O HER THAT A PERSON IS FOUND IN SITUATIONS LIKE PATIENT MEDICAL STAFF ARE OBLIGATED BY LAW TO REPORT TO APS AND THEN A SW WILL BE CALLING HER TO DO A VISIT OR A PHONE CALL. SW ALSO EXPLAINED TO PATIENT'S ABOUT THE IMPORTANCE TO COLLABORATE WITH APS TO FIND RESOURCES AND ASSISTANCE FOR PATIENT AND HIS LEVEL OF CARE, SHE UNDERSTOOD AND AGREED TO CONTINUE COMMUNICATING WITH APS AND ALSO [facility]/STAFF TO COORDINATE SERVICES AND PLAN FOR A SAFE DISCHARGE WHEN PATIENT IS READY. PER PATIENT'S AGREED AND WILL CONTINUE COMMUNICATING WITH THESE DANCE PROFESSOR. SW WILL FOLLOW UP NEEDED Addendum: 06/15/21 at 1551 by Joelle Cason DC PLANNING SHAY RECEIVED A CALL FROM APS/CLINICAL INFORMATICS DIRECTOR GURMEET DOSHI WHO CALL BACK IN REGARDS TO PATIENTS STATUS AND TO DISCUSS APS REPORT FILE ON 06/13/2021. PER MRS. GURMEET DOSHI SHE JUST GOT THE CASE ASSIGNED TO HER AND SHE WILL BE CONTACTING PATIENT'S AND DO AN INVESTIGATION. PER APS WORKER SHE WILL CONTINUE COMMUNICATING WITH THESE DANCE PROFESSOR ABOUT PATIENTS FOLLOW UP CARE AFTER HIS DISCHARGE FORM [facility]. SHAY ASKED APS/WORKER IF THERE WAS ANY RESTRICTIONS FOR PATEINT'S TO SEE PATIENT OR TO GET ANY INFORMATION ABOUT PATIENT OF NOW SINCE APS INVESTIGATION IS TAKING PLACE. PER APS/WORKER GURMEET DOSHI NO RESTRICTION IS IMPLEMENTED YET AND PATIENT'S CAN CONTINUE COMMINUTING WITH [facility]/STAFF TO DISCUSS PATIENT'S CARE AND TREATMENT. PER APS/LIBERTY PATIENT'S CAN CONTINUE CALLING AND ASKING ABOUT PATIENT'S TREATMENT. SHAY INFORMED APS /WORKER ABOUT HER SCHEDULED MEETING WITH HER AND , TO CLARIFY SOME OF THE CONCERNS SHE HAS AT THE TIME OF MEETING SW WILL FOLLOW UP NEEDED. Addendum: 06/15/21 at 1604 by Joelle Cason SS DC PLANNING SHAY CALL PATIENT'S HOUSE AND SPOKE TO HIS EL ZIMMERMAN AT TO SET UP A MEETING WITH MD. ALANIZ TOMORROW AT ABOUT 11:OOAM. PATIENT'S AGREED AND WILL BE IN MEETING SW WILL FOLLOW NEEDED. Addendum: 06/16/21 at 1555 by Joelle Cason DC PLANNING SHAY, APRYL, AND DR. RAMAN MEET WITH TANVIR'S CYNTHIA PRIETO FOR A FAMILY MEETING TO DISCUSS PATIENT'S CURRENT STATUS AND TX. PLAN. DURING THE MEETING IT WAS DISCUSSED PATIENT'S DELICATE STATUS, PROGNOSIS AND POSSIBLE NEED FOR ALTERNATIVE TREATMENTS. PATIENT'S WAS INFORMED THAT PATIENT IS SEPTIC AND MAY NEED TO PROCEED WITH ALTERNATIVE TREATMENTS. PATIEN'S ENMANUEL STATED THAT SHE IS PATIENT'S MEDICAL DECISION MAKER AND REPORTED THAT HE HAS NO ADVANCE DIRECTIVES IN PLACE HOWEVER; SHE IS TO MAKE HIS MEDICAL DECISIONS IN CASE HE IS UNABLE. PATIENT'S CYNTHIA REPORTED THAT PATIENT HAS STAGE 4 DEMENTIA AND HAS LIVER CANCER THEREFORE; HE IS IN CONSTANT PAIN AND HIS ABILITY TO DO THINGS ON HIS OWN IS NON-EXISTENT. SHE ALSO STATED THAT DURING THE MANY CONVERSATIONS SHE HAD WITH HIM IN THE PAST HE HAD STATED HIS WISHES WHEN IT COMES TO HAVING HIS CODE CHANGE TO DNR AND DECLINED TREATMENT UNLESS IS FOR COMFORT CARE. ACCORDING TO PATIENT'S PATIENT WILL NOT WANT TO HAVE ANY INTRUSIVE TREATMENT THAT WILL PROLONG HIS LIFE IF HIS QUALITY OF LIVE HAS DECLINED GREATLY. DR. RAMAN THEN RECOMMENDED HOSPICE CARE AND COMFORT CARE FOR PATIENT AND INFORMED PATIENT'S THAT PATIENT WILL BE DISCHARGE POSSIBLY TODAY OR TOMORROW WITH HOSPICE. PATIENT'S AGREED AND REPORTED THAT SHE DID NOT HAVE A PREFERENCE ON HOSPICE AGENCY AND ASK FOR A RECOMMENDATION. CM/SW INFORMED PATIENT'S THAT SCOTT FROM [facility] WILL BE CONTACTING HER TO COORDINATE PATIENT'S CARE. SW/CM WILL FOLLOW UP NEEDED.
[2021-06-14] MEDS ORDERED: MAG SULF 2000 MG/WATER PREMIX 50 ML IV SCH (15:00)
[2021-06-14] MEDS: DEXTROSE 5% 1,000 ML IV SCH (15:43)
[2021-06-14] MEDS ORDERED: KCL 20 MEQ/WATER INJ PREMIX 200 ML IV SCH (17:00)
--- NOTE | 2021-06-14 17:30 | NUR ---
PATIENT IS AN 81 YEAR OLD MALE ADMITTED ON 06/12/2021 IN THE [facility]/ED DUE TO FOUND UNCONSCIOUS AT HOME ON THE FLOOR FOR ABOUT 3 DAYS. BROUGHT BY [facility]. PATIENT HAS HX OF DIABETES AND DEMENTIA MEDICAL HX. AN APS REPORT HAS BEEN FILE WITH SMALL ANIMAL CARETAKER TATO BUSTOS DUE TO PATIENT'S FOUND WITH BRUISES, MALNOURISH, WITH NO HYGIENE AND UNSAFE ENVIRONMENT. SW ATTEMPTED TO MEET WITH PATIENT AT BEDSIDE HOWEVER PATIENT IS UNABLE TO ANSWER QUESTIONS OR PROVIDE HIS OWN INFORMATION THEREFORE; SW CONTACTED PATIENT'S EL ZIMMERMAN AT TO DISCUSS AND GATHER PATIENT'S COLLATERAL INFORMATION. ACCORDING TO PATIENT'S HE HAS BEEN DIAGNOSED WITH DEMENTIA SINCE 2018 AND HAS DECLINED ON HIS ABILITY TO CARE FOR HIMSELF, PER IS ABLE STILL TO RECOGNIZED HER BUT IS VERBALLY AGGRESSIVE WITH HER AND REFUSES TO TAKE MEDICATION, AND CARE FOR HIMSELF. PATIENT HAS FAMILY AND A DAUGHTER FROM A PREVIOUS MARRIAGE HOWEVER THEY HAVE NOT COMMUNICATED FOR ABOUT 7-10 YEARS AND SHE IS UNABLE TO REACH OUT TO THEM SINCE SHE DO NOT KNOW OF THEIR WHERE ABOUTS. PER PATIENT ALSO HAS SISTERS BUT HAVE DISCORD AND HAVE NOT SPEAK FOR SOME YEARS NOW. STATED SHE IS THE ONLY FAMILY SUPPORT PATIENT HAS AND SHE IS NOW UNABLE TO CARE FOR HIS NEEDS SINCE HIS MEDICAL NEEDS AND CARE HAS DECLINED GREATLY. PER PATIENT'S SHE WILL LIKE PATIENT TO FO TO A SNF UNTIL HE IS STABLE. PER PATIENT'S PATIENT'S LAST VISIT WITH PCP DR. MAXWELL WAS ABOUT A MONTH AGO AND HAS NOT BEEN REALLY HELPFUL TO PATIENT AND HIS , MEDICAL NEEDS. PER PATIENT WAS ABLE TO WALK ABOUT 4-5 DAYS AGO HOWEVER; HE IS NOW UNABLE TO MOVE ON HIS OWN. PATIENT IS UNWILLING TO SHOWER OR HAVE SOMEONE WASH HIM. PER PATIENT'S HE HAS NO DME AT HOME AND HIS MEDICATIONS ARE REGRADER BY HER AT [facility]. SHAY DISCUSSED WITH PATIENT'S ABOUT APS REPORT BEEN MADE AND EXPLAINED O HER THAT A PERSON IS FOUND IN SITUATIONS LIKE PATIENT MEDICAL STAFF ARE OBLIGATED BY LAW TO REPORT TO APS AND THEN A SW WILL BE CALLING HER TO DO A VISIT OR A PHONE CALL. SW ALSO EXPLAINED TO PATIENT'S ABOUT THE IMPORTANCE TO COLLABORATE WITH APS TO FIND RESOURCES AND ASSISTANCE FOR PATIENT AND HIS LEVEL OF CARE, SHE UNDERSTOOD AND AGREED TO CONTINUE COMMUNICATING WITH APS AND ALSO [facility]/STAFF TO COORDINATE SERVICES AND PLAN FOR A SAFE DISCHARGE WHEN PATIENT IS READY. PER PATIENT'S AGREED AND WILL CONTINUE COMMUNICATING WITH THESE DROP HAMMER SETTER UP. SW WILL FOLLOW UP NEEDED
--- NOTE | 2021-06-14 18:30 | NUR ---
NGT FEEDING STARTED PER ORDER, PT TOLERATED WELL, WILL CONTINUE TO MONITOR.
--- NOTE | 2021-06-14 19:11 | NUR ---
ENDORSED PT TO DIRECTOR IMAGING NURSE FOR CONTINUOUS OF CARE.
--- NOTE | 2021-06-14 19:30 | NUR ---
ASSUMED CARE OF PT.INITIAL ASSESSMENT COMPLETED.PT OPENS EYES SPONTANEOUSLY,NOT FOLLOWING COMMANDS.SINUS RHYTHM SINUS ARRHYTHMIA NOTED ON MONITOR W/PAC,ON ROOM AIR.NO SOB NOTED.W/ NGT TO RT NARES INTACT, PLACEMENT VERIFIED,NO RESIDUAL NOTED.ON CONTINUOUS NGT FEEDING GLUCERNA 1.2 AT 10ML/HR.W/PERIPHERAL IV TO LT AC G18 INTACT INFUSING ORDERED IVF AND G20 TO KULWANT INTACT.INFUSING K RIDER ORDERED.W/SOTO CATHETER TO BSD DRAINING SMALL AMT OF YELLOW URINE.ALL EXTREMITIES RIGID/GENERALIZED WEAKNESS.FLACC 0.W/D/I DRESSINGS TO RT EAR FOR PROTECTION, LT SHOULDER,LT HIP AND LT RIB AREA W/VERSATILE DRESSING.FALL PRECAUTION IN PLACE.CALL LIGHT WITHIN REACH.WILL CONTINUE TO CLOSELY MONITOR PT
[2021-06-14] MEDS: levETIRAcetam 500 MG in NACL 0.9% 100 ML IV SCH (20:50)
--- NOTE | 2021-06-14 21:13 | NUR ---
OSEI HEALY LINE NURSE AT BEDSIDE Addendum: 06/14/21 at 2113 by Lisa Keane RN WRONG PT
[2021-06-14] MEDS ORDERED: KCL 20 MEQ/WATER INJ PREMIX 100 ML IV SCH (22:00)
--- NOTE | 2021-06-14 22:30 | NUR ---
REPOSITIONED.NGT FEEDING INCREASED TO 20ML/HR ORDERED.NO RESIDUALS NOTED.WILL CONTINUE TO MONITOR
[2021-06-15] VITALS: BP 131/56
[2021-06-15] MEDS: HYDRAGUARD CREAM TP SCH ×2 (01:00→12:07)
[2021-06-15 04:00] VITALS: BP 107/63
[2021-06-15] MEDS: DEXTROSE 5% 1,000 ML IV SCH ×2 (04:36→16:52)
[2021-06-15] MEDS: PIPERACILLIN/TAZOBACTAM 2.25 GM in DEXTROSE 5% 50 ML IV SCH ×2 (04:54→12:06)
[2021-06-15 06:15] LABS: ANION GAP 14.9 (8-16); CARBON DIOXIDE 20.6 mmol/L (21-32); CHLORIDE 119 mmol/L (98-107); CREATININE 3.2 mg/dL (0.6-1.3); GLUCOSE 289 mg/dL (74-106); POTASSIUM 4.5 mmol/L (3.5-5.1); SODIUM SERUM 150 mmol/L (136-145)
[2021-06-15 06:17] LABS: UREA NITROGEN, BLOOD 104 mg/dL (7-18)
[2021-06-15 06:31] LABS: EOSINOPHILS % (AUTO) 0.1 % (0.0-4.0); HEMATOCRIT 32.2 % (36-52); HEMOGLOBIN 10.4 g/dL (12.0-18.0); LYMPHOCYTES # (AUTO) 0.5 K/uL (2.0-11.5); LYMPHOCYTES % (AUTO) 2.6 % (20.5-51.1); MEAN CORPUSCULAR HEMOGLOBIN 30 pg (27-31); MEAN CORPUSCULAR HGB CONC 32 g/dL (33-37); MEAN CORPUSCULAR VOLUME 92.9 fL (80-94); MONOCYTES # (AUTO) 0.5 K/uL (0.8-1.0); MONOCYTES % (AUTO) 2.4 % (1.7-9.3); NEUTROPHILS # (AUTO) 18.9 K/uL (1.8-7.7); NEUTROPHILS % (AUTO) 94.9 % (42.2-75.2); PLATELET COUNT (AUTO) 104 K/uL (140-450); RED BLOOD CELL COUNT(AUTO) 3.47 MIL/uL (4.20-6.10); RED CELL DISTRIBUTION WIDTH 14.5 % (11.6-13.7)
[2021-06-15] MEDS: BLOOD GLUCOSE MONITORING 1 DEV DEV FS SCH ×4 (06:32→21:29)
[2021-06-15] MEDS: INSULIN LISPRO SLIDING SCALE 100 UNITS/ML VIAL SUBQ PRN ×4 (06:32→21:30)
--- NOTE | 2021-06-15 07:05 | NUR ---
RECEIVED BEDSIDE REPORT FROM ALIREZA GALVEZ RN FOR CONTINUITY OF CARE. PT IS SUPINE IN THE BED, AAOX0, EYES CLOSED, NONVERBAL, PERRL. PT ON RM AIR, SINUS ARRHYTHMIA W/ PACS ON THE MONITOR. BOWEL SOUNDS ACTIVE. INCONTINENT OF BOWEL. F/C TO GRAVITY DRAINING YELLOW/PINKISH URINE. GENERALIZED WEAKNESS BUE, BLE. SKIN NOT INTACT, SEE WOUND ASSESSMENT. 20G IV TO GIO. 18G IV TO RAC. INFUSING D5W AT 75 ML/HR. ON STANDARD PRECAUTIONS. SAFETY PRECAUTIONS IN PLACE. INITIAL ASSESSMENT COMPLETE. WILL CONTINUE TO CLOSELY MONITOR.
[2021-06-15 08:00] VITALS: BP 138/66
--- NOTE | 2021-06-15 08:00 | NUR ---
ENDORSED TELEPHONE REPORT TO BUDDY RUBBER ENGRAVER FOR CONTINUITY OF CARE.
--- NOTE | 2021-06-15 08:25 | NUR ---
PT CLEANED AND REPOSITIONED. TOLERATED WELL. WILL CONTINUE TO CLOSELY MONITOR. Addendum: 06/15/21 at 0849 by Fang Cavazos RN PT CLEANED AND REPOSITIONED. S SOFT BM NOTED. TOLERATED WELL. WILL CONTINUE TO CLOSELY MONITOR.
--- NOTE | 2021-06-15 08:35 | NUR ---
PT TRANSFERRED TO TELE BED 108B.
--- NOTE | 2021-06-15 08:45 | NUR ---
REPORT GIVEN FROM ICU. PT ARRIVED VIA GURNEY. PT REACTIVE TO PAIN. PINPOINT PUPILS, REACTIVE TO LIGHT. NG TUBE FEEDING RESTARTED. 0 ML RESIDUAL. HOB ELEVATED. NO SOB OR RESPIRATORY DISTRESS. ON RA. ESTEFANYJOY STARTED IVPB ON LAC #18. NEEDS ALL MET AT THIS TIME. SAFETY MEASURES IN PLACE. WILL CONTINUE TO MONITOR CLOSELY.
--- NOTE | 2021-06-15 08:50 | NUR ---
AM GLUCOSE MONITORING FROM ICU REPORTS 320. SEE EMAR FOR LANTUS ADMINISTRATION. PT WITH SOTO CATH VIA GRAVITY WITH TL URINE.
[2021-06-15] MEDS: levETIRAcetam 500 MG in NACL 0.9% 100 ML IV SCH ×2 (08:57→21:18)
[2021-06-15] MEDS ORDERED: INSULIN LANTUS 100 UNITS/ML 10 ML VIAL SUBQ SCH (09:00)
--- NOTE | 2021-06-15 09:00 | NUR ---
DR. DAWKINS ROUNDED ON PT. WBC REPORTED TO .
--- NOTE | 2021-06-15 09:10 | NUR ---
NG TUBE FEEDING INCREASED TO 50 ML/HR. 0 ML RESIDUAL. HOB ELEVATED. NO SOB OR RESPIRATORY DISTRESS. ON RA. SAFETY MEASURES IN PLACE. HOURLY ROUNDS CONDUCTED.
--- NOTE | 2021-06-15 09:45 | NUR ---
BLADDER IRRIGATION WITH 500 ML NS VIA STERILE TECHNIQUE. OUTPUT WITH 500 ML WITH CLEAR, DARK YELLOW URINE OUTPUT, NO CLOTS OR SEDIMENTS NOTED. PT REPOSITIONED. HOB ELEVATED. NEEDS ALL MET AT THIS TIME. SAFETY MEASURES IN PLACE. WILL MONITOR CLOSELY.
--- NOTE | 2021-06-15 11:10 | NUR ---
NG TUBE FEEDING GOAL RATE @ 60 ML/HR WITH 200 ML WATER FLUSH Q.6 HR. PT WITH 0 ML RESIDUAL.
[2021-06-15] MEDS ORDERED: VANCOMYCIN PER PHARMACY MC PRN (11:20)
[2021-06-15 12:00] VITALS: BP 153/82
--- NOTE | 2021-06-15 12:01 | NUR ---
P.T. NOTES P.T. EVAL COMPLETED; REFER TO EVAL FOR DETAILS.
[2021-06-15] MEDS: SKINTEGRITY HYDROGEL TP SCH (12:07)
[2021-06-15 12:44] LABS: ANION GAP 12.6 (8-16); CARBON DIOXIDE 21.4 mmol/L (21-32); CHLORIDE 118 mmol/L (98-107); CREATININE 3.1 mg/dL (0.6-1.3); GLUCOSE 301 mg/dL (74-106); SODIUM SERUM 148 mmol/L (136-145)
[2021-06-15 12:47] LABS: UREA NITROGEN, BLOOD 106 mg/dL (7-18)
[2021-06-15] MEDS ORDERED: VANCOMYCIN 750 MG in DEXTROSE 5% 250 ML IV SCH (15:00)
--- NOTE | 2021-06-15 15:00 | NUR ---
YCNTHIA () AT BEDSIDE. PT WITH EYES OPEN. REACTIVE TO CYNTHIA'S VOICE. STATES SHE LIVES WITH PT. ALL QUESTIONS ANSWERED. PT'S HOB ELEVATED. TOLERATING GTUBE FEEDING. SOTO WITH YELLOW, CLEAR URINE. NO SOB OR RESPIRATORY DISTRESS. ON RA. SAFETY MEASURES IN PLACE.
[2021-06-15 16:00] VITALS: BP 144/73
--- NOTE | 2021-06-15 17:15 | NUR ---
NG TUBE WITH 0 ML RESIDUAL. TOLERATING FEEDING. NO S/S OF NAUSEA. HOB ELEVATED. NO SOB OR RESPIRATORY DISTRESS. NOTED. ON RA. SOTO VIA GRAVITY WITH CLEAR, YELLOW URINE OUTPUT. NEEDS ALL MET AT THIS TIME. PT STABLE. SAFETY MEASURES IN PLACE.
--- NOTE | 2021-06-15 19:20 | NUR ---
RECEIVED BEDSIDE ENDORSEMENT FROM AM NURSE. PATIENT IS AWAKE EYES OPEN SPONTANEOUSLY, NON VERBAL. NO S/S OF RESPIRATORY DISTRESS. BREATHING EVEN UNLABORED. GLUCERNA RUNNING AT 60 ML/HR VIA NGT, TOLERATING WELL. WITH 10 ML RESIDUAL NOTED. IVF D5W INFUSING AT 75 ML/HR. ALL SAFETY PRECAUTIONS ARE IN PLACE. FLACC 0. WILL CONTINUE TO MONITOR.
[2021-06-15 20:00] VITALS: BP 126/57
--- NOTE | 2021-06-15 21:18 | NUR ---
SCHEDULED MEDICATION ADMINISTERED ORDERED.
--- NOTE | 2021-06-15 21:30 | NUR ---
PATIENT CLEANED, CHANGED AND REPOSITIONED.
--- NOTE | 2021-06-15 21:33 | NUR ---
HEPARIN HELD PER DR. RAMAN.
--- NOTE | 2021-06-15 21:35 | NUR ---
SEEN AND EXAMINED BY DR. LONG WITH ORDERS, CARRIED OUT.
[2021-06-16] VITALS: BP 159/67
[2021-06-16] MEDS: HYDRAGUARD CREAM TP SCH (01:38)
[2021-06-16 04:00] VITALS: BP 146/76
--- NOTE | 2021-06-16 05:00 | NUR ---
ROUNDED PATIENT, PT SLEEPING, CHEST RISE AND FALL SYMMETRICALLY. NO SOB NOTED
[2021-06-16 06:39] LABS: BASOPHILS % (AUTO) 0.1 % (0.0-2.0); HEMATOCRIT 27.3 % (36-52); LYMPHOCYTES # (AUTO) 0.5 K/uL (2.0-11.5); LYMPHOCYTES % (AUTO) 2.1 % (20.5-51.1); MEAN CORPUSCULAR HEMOGLOBIN 30 pg (27-31); MEAN CORPUSCULAR HGB CONC 33 g/dL (33-37); MEAN CORPUSCULAR VOLUME 91.7 fL (80-94); MONOCYTES # (AUTO) 0.7 K/uL (0.8-1.0); MONOCYTES % (AUTO) 3.4 % (1.7-9.3); NEUTROPHILS # (AUTO) 20.7 K/uL (1.8-7.7); NEUTROPHILS % (AUTO) 94.4 % (42.2-75.2); PLATELET COUNT (AUTO) 106 K/uL (140-450); RED BLOOD CELL COUNT(AUTO) 2.98 MIL/uL (4.20-6.10); RED CELL DISTRIBUTION WIDTH 14.5 % (11.6-13.7); WHITE BLOOD COUNT (AUTO) 21.9 K/uL (4.8-10.8)
[2021-06-16 06:41] LABS: ANION GAP 11.9 (8-16); CARBON DIOXIDE 23.2 mmol/L (21-32); CHLORIDE 114 mmol/L (98-107); CREATININE 2.9 mg/dL (0.6-1.3); GLUCOSE 317 mg/dL (74-106); POTASSIUM 4.1 mmol/L (3.5-5.1); SODIUM SERUM 145 mmol/L (136-145)
[2021-06-16 06:47] LABS: UREA NITROGEN, BLOOD 110 mg/dL (7-18)
[2021-06-16] MEDS: DEXTROSE 5% 1,000 ML IV SCH (06:50)
[2021-06-16] MEDS: BLOOD GLUCOSE MONITORING 1 DEV DEV FS SCH ×2 (06:54→11:00)
[2021-06-16] MEDS: INSULIN LISPRO SLIDING SCALE 100 UNITS/ML VIAL SUBQ PRN ×2 (06:55→11:00)
[2021-06-16 07:22] LABS: PHOSPHORUS 2.5 mg/dL (2.5-4.9)
--- NOTE | 2021-06-16 07:30 | NUR ---
ENDORSED PATIENT TO AM NURSE FOR CONTINUITY OF CARE. PT IS STABLE.
--- NOTE | 2021-06-16 07:31 | NUR ---
RECEIVED REPORT FROM OFFICE HELPER CLERICAL NURSE FOR CONTINUITY OF CARE. PT IS IN BED, RESTING AT THIS TIME, PT IS NONVERBAL. PT ON ROOM AIR, NO SIGNS OF DISTRESS NOTED. SINUS RHYTHM W/ PACS ON THE MONITOR. BOWEL SOUNDS ACTIVE, PT DIET IS GLUCERNA 1.2 @60ML/HR WITH WATER FLUSH 200Q6H. PT IS INCONTINENT OF BOWEL. SOTO CATHETER IN PLACE, DRAINING YELLOW/PINKISH FLUID. SKIN NOT INTACT. PT HAS IV 20G IV TO KULWANT. INFUSING D5W AT 75 ML/HR. ON STANDARD PRECAUTIONS. SAFETY PRECAUTIONS IN PLACE. INITIAL ASSESSMENT COMPLETE. WILL CONTINUE TO CLOSELY MONITOR.
[2021-06-16 08:00] VITALS: BP 128/61
--- NOTE | 2021-06-16 08:50 | NUR ---
DR WEST HERE TO SEE PT. NEW ORDERS PLACED. WILL CONTINUE TO MONITOR.
[2021-06-16] MEDS ORDERED: INSULIN LANTUS 100 UNITS/ML 10 ML VIAL SUBQ SCH (09:00)
[2021-06-16] MEDS ORDERED: MEROPENEM 500 MG in NACL 0.9% 50 ML IV SCH (09:00)
[2021-06-16] MEDS ORDERED: THIAMINE 200 MG/2 ML VIAL IM SCH (09:00)
[2021-06-16] MEDS ORDERED: INSULIN LISPRO 100 UNITS/ML VIAL SUBQ ONE (09:00)
[2021-06-16] MEDS ORDERED: MEMANTINE 10 MG TAB NG SCH (09:00)
[2021-06-16] MEDS: SKINTEGRITY HYDROGEL TP SCH (09:15)
--- NOTE | 2021-06-16 09:33 | NUR ---
ADMINISTERED ALL SCHEDULED MEDICATIONS. EDUCATED PT ON MEDS ADMINISTERED. NO REPLY FROM PT. WILL CONTINUE TO MONITOR.
[2021-06-16] MEDS: levETIRAcetam 500 MG in NACL 0.9% 100 ML IV SCH (09:43)
--- NOTE | 2021-06-16 11:00 | NUR ---
RECEIVED REPORT FROM PERRY VAZ.
[2021-06-16] MEDS ORDERED: LORazepam 2 MG/ML VIAL IM/IVP PRN (11:40)
[2021-06-16] MEDS ORDERED: MORPHINE SULFATE 4 MG/ML SYR IVP PRN (11:40)
[2021-06-16 12:00] VITALS: BP 121/58
--- NOTE | 2021-06-16 12:00 | NUR ---
STAGE DRIVER SPOKE TO PT'S , CYNTHIA, WHO DECIDED TO CHANGE CODE STATUS TO DNR AND TO PLACE PT ON HOSPICE
--- NOTE | 2021-06-16 13:00 | NUR ---
ORDERS TO DC MEDS AND DC NGT NOTED
--- NOTE | 2021-06-16 14:46 | NUR ---
PER RN: THE PATIENT'S FAMILY DECIDED TO MAKE PATIENT DNR AND PT ON MORPHINE DRIPS ONLY AT THIS TIME WILL DISCONTINUE NUTRITION ASSESSMENTS AND FOLLOW [employer] RD WILL REMAIN AVAILABLE FOR CONSULTS NEEDS AND WILL RESTART NUTRITION ASSESSMENT IF REQUESTED AMANDA MELENDEZ RD
--- NOTE | 2021-06-16 15:00 | NUR ---
WOUND CARE AND LUIS CARE DONE, TURNED AND REPOSITIONED
[2021-06-16 16:00] VITALS: BP 119/67
--- NOTE | 2021-06-16 18:27 | NUR ---
PT RESTING, NO DISTRESS NOTED, APHASIC, EYES CLOSED, UNABLE TO LET NEEDS KNOWN, RESPONSIVE TO PAIN STIMULI
--- NOTE | 2021-06-16 19:15 | NUR ---
RECEIVED BEDSIDE REPORT FROM DAY SHIFT NURSE FOR CONTINUITY OF CARE. PT IS LETHARGIC, AROUSABLE BY LIGHT TO DEEP PAIN. PT IS NONVERBAL. RESPIRATION EVEN UNLABORED ON ROOM AIR. NO DISTRESS NOTED. SKIN IS WARM AND DRY. IV PATENT AND INTACT. SOTO CATHETER DRAINING YELLOW URINE NOTED. PLAN OF CARE UPDATED. ALL SAFETY MEASURES IN PLACE. BED IS AT LOW POSITION. CALL LIGHT WITHIN REACH. WILL CONTINUE TO MONITOR
[2021-06-16 20:00] VITALS: BP 126/67
--- NOTE | 2021-06-16 20:45 | NUR ---
MADE ROUNDS PATIENT SLEEPING RESPIRATION EVEN UNLABORED ON ROOM AIR. NO DISTRESS NOTED. WILL CONTINUE TO MONITOR
--- NOTE | 2021-06-16 22:45 | NUR ---
MADE ROUNDS PATIENT SLEEPING NO DISTRESS NOTED
[2021-06-17] VITALS: BP 137/54
--- NOTE | 2021-06-17 00:50 | NUR ---
MADE ROUNDS PATIENT SLEEPING. NO DISTRESS NOTED. WILL CONTINUE TO MONITOR
--- NOTE | 2021-06-17 02:18 | NUR ---
MADE ROUNDS PATIENT SLEEPING NO DISTRESS NOTED
[2021-06-17 04:00] VITALS: BP 132/62
--- NOTE | 2021-06-17 04:00 | NUR ---
PATIENT HAD A BOWEL MOVEMENT PROVIDED LUIS CARE. WILL CONTINUE TO MONITOR
--- NOTE | 2021-06-17 04:55 | NUR ---
PATIENT IS MOANING, GRIMACING, AND DIFFICULT TO CONTROL. PROVIDE PRN PAIN MEDS PER ORDER. WILL CONTINUE TO MONITOR
[2021-06-17 07:17] LABS: HEMATOCRIT 27.9 % (36-52); HEMOGLOBIN 9.2 g/dL (12.0-18.0); MEAN CORPUSCULAR HEMOGLOBIN 30 pg (27-31); MEAN CORPUSCULAR HGB CONC 33 g/dL (33-37); MEAN CORPUSCULAR VOLUME 91.4 fL (80-94); PLATELET COUNT (AUTO) 125 K/uL (140-450); RED BLOOD CELL COUNT(AUTO) 3.05 MIL/uL (4.20-6.10); RED CELL DISTRIBUTION WIDTH 14.8 % (11.6-13.7); WHITE BLOOD COUNT (AUTO) 21.5 K/uL (4.8-10.8)
--- NOTE | 2021-06-17 07:31 | NUR ---
RECEIVED REPORT FROM COMMANDING OFFICER MOTORIZED SQUAD NURSE FOR CONTINUITY OF CARE. PT IS SLEEPING AT THIS TIME, AROUSABLE BY LIGHT TO DEEP PAIN. PT IS NONVERBAL. RESPIRATION EVEN UNLABORED ON ROOM AIR. NO SIGNS OF DISTRESS NOTED. SKIN IS WARM AND DRY. PT HAS IV TO KULWANT. IV INTACT AND PATENT, SALINE LOCKED. PT HAS SOTO CATHETER IN PLACE, DRAINING YELLOW URINE. PT CODE STATUS DNR. ALL SAFETY MEASURES IN PLACE. BED IS AT LOW POSITION. CALL LIGHT WITHIN REACH. WILL CONTINUE TO MONITOR
[2021-06-17 07:47] LABS: ANION GAP 13.3 (8-16); CARBON DIOXIDE 23.5 mmol/L (21-32); CHLORIDE 116 mmol/L (98-107); CREATININE 2.7 mg/dL (0.6-1.3); GLUCOSE 56 mg/dL (74-106); POTASSIUM 3.8 mmol/L (3.5-5.1); SODIUM SERUM 149 mmol/L (136-145)
--- NOTE | 2021-06-17 07:55 | NUR ---
LAB CALLED TO REPORT CRITICAL VALUE OF BUN 117, CREATININE 2.[address] LUNA. NO CHANGE IN ORDERS. WILL CONTINUE TO MONITOR.
[2021-06-17 07:56] LABS: UREA NITROGEN, BLOOD 117 mg/dL (7-18)
[2021-06-17 08:00] VITALS: BP_SYST 110; BP_SYST 166; BP_DIAS 47; BP_DIAS 88
[2021-06-17 08:00] LABS: MAGNESIUM 2.1 mg/dL (1.8-2.4); PHOSPHORUS 4.6 mg/dL (2.5-4.9)
[2021-06-17] MEDS ORDERED: DEXTROSE 50% 50 ML SYR IVP PRN (08:35)
--- NOTE | 2021-06-17 08:35 | NUR ---
PT BLOOD GLUCOSE 56. DR LUNA MADE AWARE. NEW ORDERS PLACED, WILL FOLLOW THROUGH WITH NEW ORDERS. WILL CONTINUE TO MONITOR.
[2021-06-17] MEDS ORDERED: FOAM DRESSING TP SCH (09:00)
--- NOTE | 2021-06-17 09:00 | NUR ---
PT IV LEAKING, NO LONGER PATENT. IV REMOVED. WILL ATTEMPT NEW IV ACCESS.
--- NOTE | 2021-06-17 09:02 | NUR ---
NEW IV ACCESS. RFA 22G. WILL CONTINUE TO MONITOR.
[2021-06-17 09:07] LABS: LYMPHOCYTES % (MANUAL) 1 % (20-46)
[2021-06-17 09:08] LABS: BASOPHILS % (MANUAL) 0 % (0-2); BLASTS, MANUAL % 0 % (0-0); EOSINOPHILS % (MANUAL) 0 % (0-4); METAMYELOCYTES % 0 % (0-0); MONOCYTES % (MANUAL) 3 % (5-12); MYELOCYTES % 0 % (0-0); OTHER CELLS,MANUAL % 0 (0-0); PROMYELOCYTES % 0 % (0-0)
[2021-06-17 09:25] LABS: BUFFY COAT SMEAR PREP 0
[2021-06-17] MEDS ORDERED: MSCON30 PO (10:19)
[2021-06-17 12:00] VITALS: BP 117/54
--- NOTE | 2021-06-17 12:54 | NUR ---
ASSISTED WITH CHANGING AND REPOSITIONING PT. PT TOLERATING WELL. NO SIGNS OF PAIN OR DISCOMFORT NOTED. WILL CONTINUE TO MONITOR.
[2021-06-17] MEDS ORDERED: AZITHROMYCIN 500 MG in DEXTROSE 5% 250 ML IV SCH (14:00)
--- NOTE | 2021-06-17 15:43 | NUR ---
IV ANTIBIOTICS ADMINISTERED BY ТАТЬЯНА NULL. WILL CONTINUE TO MONITOR.
[2021-06-17 16:28] VITALS: BP_DIAS 64
--- NOTE | 2021-06-17 16:40 | NUR ---
CALLED [facility] TO GIVE REPORT. SPOKE WITH JAVIER. INFORMED THAT PT WILL BE PICKED UP BETWEEN [phone] TONIGHT. WILL CONTINUE TO MONITOR.
--- NOTE | 2021-06-17 17:50 | NUR ---
PT PICKED UP BY [facility], GOING TO [facility]. PER FACILITY REQUEST, IV INTACT. PT HAS SOTO CATHETER INTACT. ALL BELONGINGS TAKEN UPON DISCHARGE.
== END 2021-06-17 17:50 | DRG 871 ==
LOC: MED 12:06 → MIC 16:44 → MTU 06-15 08:11
PROVIDERS: ADMIT Student in an Organized Health Care Education/Training Program; ATTEND Student in an Organized Health Care Education/Training Program
PROC: 4A10X4Z Monitoring of Central Nervous Electrical Activity, External Approach (ICD-10-PCS; principal; 2021-06-15)
DX: A41.9 Sepsis, unspecified organism (principal); E11.10 Type 2 diabetes mellitus with ketoacidosis without coma; J69.0 Pneumonitis due to inhalation of food and vomit; G93.41 Metabolic encephalopathy; N17.0 Acute kidney failure with tubular necrosis; E43 Unspecified severe protein-calorie malnutrition; M62.82 Rhabdomyolysis; E87.0 Hyperosmolality and hypernatremia; F03.90 Unspecified dementia, unspecified severity, without behavioral disturbance, psychotic disturbance, mood disturbance, and anxiety; E83.39 Other disorders of phosphorus metabolism; C61 Malignant neoplasm of prostate; K57.90 Diverticulosis of intestine, part unspecified, without perforation or abscess without bleeding; E83.41 Hypermagnesemia; E87.6 Hypokalemia; E83.51 Hypocalcemia; D53.9 Nutritional anemia, unspecified; N30.80 Other cystitis without hematuria; I12.9 Hypertensive chronic kidney disease with stage 1 through stage 4 chronic kidney disease, or unspecified chronic kidney disease; E11.22 Type 2 diabetes mellitus with diabetic chronic kidney disease; N18.9 Chronic kidney disease, unspecified; D69.6 Thrombocytopenia, unspecified; G40.909 Epilepsy, unspecified, not intractable, without status epilepticus; Z20.822 Contact with and (suspected) exposure to COVID-19; Z85.46 Personal history of malignant neoplasm of prostate; Z90.49 Acquired absence of other specified parts of digestive tract
CPT/HCPCS: 36415; 36600; 70450; 71045; 76770; 80048; 80053; 80202; 80305; 81001; 82009; 82140; 82272; 82550; 82553; 82570; 82803; 82947; 82948; 83036; 83605; 83690; 83735; 83880; 84100; 84154; 84300; 84436; 84439; 84443; 84479; 84484; 85025; 87040; 87081; 87086; 92610; 93005; 96361; 96365; 96375; 97110; 97112; 97163-GP; 97164; 99291; A6248; C1758; G0482; J0456; J0696; J1644; J1815; J1953; J2185; J2270; J2310; J2543; J3370; J3411; J3475; J3480; J7030; J7060; Q0092